=== PATIENT | male | born 1940 | race Caucasian/White ===

== ENCOUNTER 2016-08-26 06:02 | Day surgery (SDC) | payer OTHER ==
[~2016-08-26 06:02] MED LIST: ACETAMINOPHEN P1 TA1 PO; ASPIRIN ADULT L81 MG PO; BUPROPION HCL150 M3 PO; CARAFATE EQUIVAL1 GM PO; CLOPIDOGREL75 MG PO; COLACE100 MG PO; HYCET1 ML PO; LIPITOR80 MG PO; LISINOPRIL20 MG PO; METOPROLOL SUCC50 MG PO; MULTIPLE VITAMIN PO; PANTOPRAZOLE SO40 MG PO; PAPAYA100 MG PO; PROBIOTIC; VITAMIN B COMPLE1 PO; VITAMIN C500 M1 PO; VITAMIN E200 UNIT PO
--- NOTE | 2016-08-26 07:43 | Provider's Discharge Care Plan ---
Problem, Goal, Plan Problem List 1. S/P EGD Goals: Screening Instructions: Follow up as directed, Take meds as directed
--- NOTE | 2016-08-26 07:43 | Provider's Discharge Care Plan ---
Problem, Goal, Plan Problem List 1. S/P EGD Goals: Screening Instructions: Follow up as directed, Take meds as directed
--- NOTE | 2016-08-26 08:24 | OPERATIVE REPORT ---
DATE OF SURGERY: 08/26/2016 SURGEON: Cory Vale III, MD [employer] GRINDER: None. PREOPERATIVE DIAGNOSIS: 1. History of peptic ulcer disease POSTOPERATIVE DIAGNOSES: 1. Schatzki's ring 2. Hiatal hernia 3. No evidence of peptic ulcer disease PROCEDURE PERFORMED: 1. Upper gastrointestinal endoscopy with gastric mucosal biopsy for CLOtest ANESTHESIA: TIVA, posterior pharynx Cetacaine spray. INDICATIONS: The patient is a 76-year-old male who, in 02/2016, underwent upper GI endoscopy following an upper GI bleed which required 3-unit transfusion. He was noted to have a duodenal ulcer at that time. He is asymptomatic at present. SURGICAL FINDINGS: Normal-appearing duodenum and duodenal bulb. No evidence of peptic ulcer disease. The gastric mucosal pattern appeared grossly normal. The patient was noted to have a moderate size hiatal hernia. The patient was noted to have a Schatzki ring. The esophagus appeared grossly normal. SURGICAL TECHNIQUE: The patient was brought to the operating room and placed in the left lateral decubitus position, where he was administered TIVA and monitored closely by anesthesia. After proper anesthesia had taken effect, the posterior pharynx was sprayed with Cetacaine spray, after which an Olympus fiberoptic video flexible upper GI endoscope was passed down the patient's posterior pharynx. The esophagus was intubated under direct visualization. The scope passed easily down the esophagus, through the EG junction, which was approximately 40 cm from the dental incisors, into the gastric lumen and eventually into the second and third portion of the duodenum. On withdrawing the scope, the aforementioned findings were noted. The scope was withdrawn very carefully across the bulb. There was no evidence of peptic ulcer disease in the duodenum or the bulb itself. The scope was withdrawn into the gastric lumen where it was retroflexed. Good view of the cardia, fundus, and EG junction from below, where a moderate-sized hiatal hernia was identified. A single biopsy was obtained because the patient was on Plavix. This was sent to pathology for CLOtest. The scope was then withdrawn through the EG junction, where the remaining esophagus appeared grossly normal. The scope was completely withdrawn. The patient tolerated the procedure well and was transferred to the recovery room in stable condition. There were no intraoperative or anesthetic complications.
[2016-08-26 08:59] VITALS: BP 158/72
== END 2016-08-26 09:20 | disposition home or self-care (01) ==
LOC: OR SRH 06:02 → SCU SRH 06:06 → OR SRH 07:30
PROVIDERS: Specialist
PROC: 0DB68ZX Excision of Stomach, Via Natural or Artificial Opening Endoscopic, Diagnostic (ICD-10-PCS; principal; 2016-08-26 07:30)
DX: K22.2 Esophageal obstruction (principal); K44.9 Diaphragmatic hernia without obstruction or gangrene; Z87.11 Personal history of peptic ulcer disease; Z79.01 Long term (current) use of anticoagulants
CPT/HCPCS: 29229; 29240; 50004; 60001; 82943; 83526; 90705